=== PATIENT | male | born 1965 | race Asian ===

== ENCOUNTER 2017-10-15 08:20 | Emergency (ER) | payer OTHER ==
[~2017-10-15] VITALS: Ht 172.7 cm; Wt 78.0 kg
[~2017-10-15 08:20] MED LIST: ENALAPRIL MALEAT5 MG ORAL; IBUPROFEN600 MG ORAL
[2017-10-15] MEDS ORDERED: LISINOPRIL10 MG ORAL (08:28)
[2017-10-15] MEDS ORDERED: Fluorescein Strips LEFT EYE ONE (08:45)
[2017-10-15] MEDS ORDERED: Tetracaine 0.5% Opth 4ml Soln LEFT EYE ONE (08:45)
--- NOTE | 2017-10-15 09:45 | Emergency Room Report ---
History of Present Illness General Chief Complaint: Eye Problems Source: Patient, Medical Record Present Illness HPI This patient states that just prior to arrival he was at work cutting a pineapple and when he was removing the pineapple leaves he scratched his eye. He states that initially he had some discomfort and watering of the eye. He denies blurry vision. He denies pain at this time. He does not wear contacts or glasses. He has no other complaints. Allergies: Coded Allergies: No Known Allergies (Unverified , 11/26/12) Patient History Past Medical History: see triage record, HTN, other - gout Social History: Denies: smoking, alcohol use, drug use Reviewed Nursing Documentation: PMH: Agreed; PSxH: Agreed Nursing Documentation-PMH Past Medical History: No History, Except For Hx Hypertension: Yes Review of Systems All Other Systems: negative except mentioned in HPI Physical Exam Vital Signs Date Time Temp Pulse Resp B/P (MAP) Pulse Ox O2 Delivery O2 Flow Rate FiO2 10/15/17 08:24 97.7 74 18 113/79 96 Room Air 97.7 Sp02 EP Interpretation: reviewed, normal General Appearance: no apparent distress, alert, GCS 15, non-toxic Head: normocephalic, atraumatic Eyes: left eye fluoroscene uptake - there are 2 superficial linear areas of uptake at 6 O'clock over the lateral iris. First 4mm, second 3 mm. There is a small amount of conjuctival erythemal laterally; bilateral eye PERRL, bilateral eye EOMI ENT: hearing grossly normal, normal pharynx, no angioedema, normal voice Neck: normal inspection, full range of motion Respiratory: normal inspection, no respiratory distress, no retraction, no accessory muscle use, speaking full sentences Rectal: deferred Musculoskeletal: back normal, gait/station normal, normal range of motion, non- tender Neurologic: alert, oriented x3, responsive, motor strength/tone normal, sensory intact, speech normal Psychiatric: judgement/insight normal, memory normal, mood/affect normal, no suicidal/homicidal ideation Skin: normal color, no rash, warm/dry, well hydrated Medical Decision Making Diagnostic Impression: Primary Impression: Corneal abrasion ER Course This patient has a corneal abrasion. Appears superficial and small by Peoples lamp with flourescin staining. The patient's pain had resolved. Pupils and the rest of the eye exam are normal and benign. I do not suspect a ruptured globe. The patient is instructed to follow up with an pathology collector or supply tech in 48 hours for reassessment. I we will place the patient on Ilotycin ointment for protection and prevention of infection. The patient is given return precautions and follow up instructions. Last Vital Signs Date Time Temp Pulse Resp B/P (MAP) Pulse Ox O2 Delivery O2 Flow Rate FiO2 10/15/17 08:24 97.7 74 18 113/79 96 Room Air 97.7 Status: improved Disposition: HOME, SELF-CARE Condition: Improved Referrals: NOT CHOSEN REYES/,REFERRING (PCP) IKER RECIO D.O. Oct 15, 2017 09:45
[2017-10-15] MEDS ORDERED: ERYTHROMYCIN3.5 GM LEFT EYE (09:47)
[2017-10-15 09:57] VITALS: BP 124/71
== END 2017-10-15 09:57 | disposition home or self-care (01) ==
LOC: EMR 08:56
DX: S05.02XA Injury of conjunctiva and corneal abrasion without foreign body, left eye, initial encounter (principal); W22.8XXA Striking against or struck by other objects, initial encounter; Y92.59 Other trade areas as the place of occurrence of the external cause; Y99.0 Civilian activity done for income or pay
CPT/HCPCS: 99282